=== PATIENT | male | born 1940 | race Caucasian/White ===

== ENCOUNTER 2016-09-30 06:03 | Inpatient (IN) | payer OTHER ==
[~2016-09-30] VITALS: Ht 172.7 cm; Wt 60.0 kg
[~2016-09-30 06:03] MED LIST: ACTOS15 MG PO; AMLODIPINE BESY10 MG PO; APRESOLINE25 MG PO; APRESOLINE50 MG PO; ASPIR-TRIN325 M1 PO; ATIVAN1 MG PO; ATORVASTATIN CA40 MG PO; Apresoline PO; Ativan PO; CARVEDILOL25 MG PO; CATAPRES-TTS 31 EACH TD; CHOLESTYRAMINE P4 GM PO; COREG25 M1 PO; CRESTOR10 MG PO; Catapres-TTS 3 TD; Coreg PO; Flora-Q,Risaquad PO; GEODON20 MG PO; GLUCOPHAGE1000 MG PO; GLUCOTROL5 MG PO; Glucophage PO; HALOPERIDOL5 MG/1 M1 IM; HYDROCHLOROTHIA25 MG PO; HYGROTON25 MG PO; K-DUR20 MEQ PO; K-Dur PO; LABETALOL HCL200 MG; LISINOPRIL40 MG PO; MECLIZINE HCL25 MG; METFORMIN HCL500 MG; METRONIDAZOLE500 MG PO; NORVASC10 MG PO; NOVOLOG PE100 UNITS/ SC; Norvasc PO; ONDANSETRON ODT4 MG; ONGLYZA5 MG PO; PANTOPRAZOLE SO40 MG PO; Protonix PO; SERTRALINE HCL100 MG PO; TRAZODONE HCL50 MG PO; TYLENOL REGULA325 MG PO; ZIPRASIDONE HCL20 MG PO; ZOFRAN4 MG PO; ZOLOFT100 MG PO; ZUPLENZ4 MG PO; Zestril,Prinivil PO
[2016-09-30 06:42] LABS: EOSINOPHIL (%) 0.7 % (0-5); EOSINOPHIL COUNT 0.1 K/uL (0-0.3); HEMATOCRIT 34.2 % (38.0-50.0); IMMATURE GRANULOCYTE (%) 0.4 % (0.0-0.7); IMMATURE GRANULOCYTE COUNT 0.4 K/uL; LYMPHOCYTE COUNT 2.5 K/uL (1.0-2.8); MCH 29.1 PG (29.0-34.0); MCHC 33.9 G/DL (30.0-36.0); MCV 85.9 FL (86-99); MEAN PLAT.VOLUME 10.7 uM^3 (9.0-12.4); MONOCYTE (%) 6.2 % (3-12); MONOCYTE COUNT 0.7 K/uL (0-0.8); NEUTROPHIL (%) 69.6 % (45-76); NEUTROPHIL COUNT 7.5 K/uL (1.8-6.4); PLATELET COUNT 423 K/uL (156-360); RBC DIS.WIDTH-CV 13.4 % (11.8-14.6); RBC DIS.WIDTH-SD 41.4 % (39-53); RED BLOOD COUNT 3.98 M/uL (4.00-5.50); WHITE BLOOD COUNT 10.7 K/uL (4.1-10.2)
[2016-09-30 06:50] LABS: AMYLASE 33 IU/L (1-118); CHLORIDE 100 mEq/L (99-109); POTASSIUM 3.7 mEq/L (3.7-5.4); SODIUM 141 mEq/L (136-147)
[2016-09-30 06:52] LABS: GLUCOSE 202 mg/dL (70-99)
[2016-09-30 06:52] LABS: INTER. NORMALIZED RATIO 1.3; PROTHROMBIN TIME 13.4 (9.2-11.2); PTT 27.1 (25-32)
[2016-09-30 06:53] LABS: ANION GAP 15 MEQ/L (2-14)
[2016-09-30 06:55] LABS: GFR ESTIMATE (CALCULATED) 35 mL/min/; SERUM ETHYL ALCOHOL < 10 mg/dL
[2016-09-30 06:56] LABS: UREA NITROGEN (BUN) 27 mg/dL (9-23)
[2016-09-30 06:58] LABS: LIPASE 34 U/L (1.0-51.0)
[2016-09-30 07:02] LABS: TROP-I INTERPRETATION NEGATIVE; TROPONIN-I 0.04 ng/mL (0.0-0.30)
[2016-09-30 07:02] LABS: CREATININE 1.8 mg/dL (0.6-1.3); POTASSIUM 3.3 mEq/L (3.7-5.4)
[2016-09-30] MEDS ORDERED: TRAZODONE HCL50 MG PO (11:44)
[2016-09-30] MEDS ORDERED: FENOFIBRATE145 M1 PO (11:45)
[2016-09-30] MEDS ORDERED: SERTRALINE HCL100 MG PO (11:45)
[2016-09-30] MEDS ORDERED: GLIPIZIDE5 MG PO (11:46)
[2016-09-30] MEDS ORDERED: SERTRALINE HCL50 MG PO (11:46)
[2016-09-30] MEDS ORDERED: HYDRALAZINE HCL50 MG PO (11:47)
[2016-09-30] MEDS ORDERED: POTASSIUM CHLO20 ME2 PO (11:47)
[2016-09-30] MEDS ORDERED: HYDROCHLOROTHIA25 MG PO (11:47)
[2016-09-30] MEDS ORDERED: ACETAMINOPHEN325 M1 PO (11:49)
[2016-09-30] MEDS ORDERED: CATAPRES-TTS 31 EACH TD (11:50)
[2016-09-30] MEDS ORDERED: LIPITOR40 MG PO (11:50)
[2016-09-30] MEDS ORDERED: CARVEDILOL25 MG PO (11:50)
[2016-09-30] MEDS ORDERED: GEODON20 MG PO (11:51)
[2016-09-30] MEDS ORDERED: ASPIRIN325 MG PO (11:51)
[2016-09-30] MEDS ORDERED: ACTOS15 MG PO (11:51)
[2016-09-30] MEDS ORDERED: LISINOPRIL40 MG PO (11:51)
[2016-09-30] MEDS ORDERED: AMLODIPINE BESY10 MG PO (11:52)
[2016-09-30] MEDS ORDERED: CHOLESTYRAMINE P4 GM PO (11:52)
[2016-09-30] MEDS ORDERED: PROTONIX40 MG PO (11:52)
[2016-09-30] MEDS ORDERED: METFORMIN HCL1000 MG PO (11:52)
[2016-09-30 13:10] VITALS: BP 245/125
[2016-09-30 14:10] VITALS: BP 138/63
[2016-09-30 14:53] LABS: ANION GAP 15 MEQ/L (2-14); CHLORIDE 102 MEQ/L (99-109); GFR ESTIMATE (CALCULATED) 48 mL/min/; POTASSIUM 4.1 MEQ/L (3.7-5.4); SAMPLE HEMOLYSIS CHECK 0; SAMPLE ICTERIC CHECK 0; SAMPLE LIPEMIA CHECK 0; SODIUM 142 MEQ/L (136-147); UREA NITROGEN (BUN) 23 mg/dL (9-23)
[2016-09-30 15:22] LABS: GLUCOSE 96 mg/dL (70-99)
[2016-09-30 17:19] LABS: POINT-OF-CARE METER ID UU14174216
[2016-09-30 17:39] VITALS: BP 152/68
[2016-09-30 19:20] VITALS: BP 185/92
[2016-09-30 23:55] VITALS: BP 145/99
[2016-10-01 01:21] LABS: POINT-OF-CARE METER ID UU13113781
[2016-10-01 02:52] VITALS: BP 234/103
[2016-10-01 03:26] LABS: ADD MIUA? YES; BILIRUBIN MODERATE; BLOOD TRACE; COLOR YELLOW ((YELLOW)); GLUCOSE (STRIP) NEGATIVE; KETONES >=80; LEUKOCYTES NEGATIVE; NITRITE NEGATIVE; PH, URINE 5.5 (5-8); PROTEIN (STRIP) 100; SPECIFIC GRAVITY 1.021 (1.000-1.030); UROBILINOGEN 0.2 MG/DL (0.2-1.0)
[2016-10-01 03:41] LABS: BACTERIA 1+ /HPF; CASTS NONE SEEN /LPF; CRYSTALS NONE SEEN; EPITHELIAL CELLS RARE /HPF; MUCUS NONE SEEN /LPF; RED BLOOD CELLS NONE SEEN /HPF (0-5); WHITE BLOOD CELLS NONE SEEN /HPF (0-5)
[2016-10-01 03:43] LABS: ICTOTEST NEGATIVE
[2016-10-01 07:01] LABS: POINT-OF-CARE METER ID UU14174216
[2016-10-01 07:08] LABS: EOSINOPHIL (%) 0.2 % (0-5); HEMATOCRIT 33.3 % (38.0-50.0); IMMATURE GRANULOCYTE (%) 0.3 % (0.0-0.7); LYMPHOCYTE COUNT 2.8 K/uL (1.0-2.8); MCH 28.8 PG (29.0-34.0); MCHC 33.3 G/DL (30.0-36.0); MCV 86.3 FL (86-99); MEAN PLAT.VOLUME 10.6 uM^3 (9.0-12.4); MONOCYTE (%) 6.3 % (3-12); NEUTROPHIL (%) 75.3 % (45-76); NEUTROPHIL COUNT 11.9 K/uL (1.8-6.4); PLATELET COUNT 420 K/uL (156-360); RBC DIS.WIDTH-CV 13.8 % (11.8-14.6); RBC DIS.WIDTH-SD 43.2 % (39-53); RED BLOOD COUNT 3.86 M/uL (4.00-5.50)
[2016-10-01 07:14] LABS: WHITE BLOOD COUNT 15.7 K/uL (4.1-10.2)
[2016-10-01 08:00] VITALS: BP 190/84
[2016-10-01 09:30] LABS: ALKALINE PHOSPHATASE 32 IU/L (3-129); ANION GAP 28 MEQ/L (2-14); CHLORIDE 98 MEQ/L (99-109); DIRECT BILIRUBIN 0.1 mg/dL (0.0-0.3); GFR ESTIMATE (CALCULATED) > 59 mL/min/; GLUCOSE 99 mg/dL (70-99); POTASSIUM 3.5 MEQ/L (3.7-5.4); SAMPLE HEMOLYSIS CHECK 0; SAMPLE ICTERIC CHECK 0; SAMPLE LIPEMIA CHECK 0; SODIUM 138 MEQ/L (136-147); TOTAL BILIRUBIN 0.6 MG/DL (0.0-1.0); UREA NITROGEN (BUN) 20 mg/dL (9-23)
[2016-10-01 09:35] LABS: MAGNESIUM 0.8 mg/dl (1.3-2.7)
[2016-10-01 10:46] LABS: BASE EXCESS -13.9 mEq/L (-3 to +3); CARBOXY HGB 1.4 % (0-5); COMMENTS - BLOOD GASES C+A-N/A; DEVICE ROOM AIR; FI02 21 %; METHEMOGLOBIN 1.5 % (0-1.5); PCO2 19 mm Hg (35-45); PO2 109 mm Hg (80-100); SITE LR; TOTAL RESP RATE 28 resp/min; pH 7.33 (7.35-7.45)
[2016-10-01 11:47] VITALS: BP 136/103
[2016-10-01 14:00] VITALS: BP 173/88
[2016-10-01 14:06] LABS: BASE EXCESS -15.4 mEq/L (-3 to +3); BICARBONATE 9.4 mEq/L (22-26); CARBOXY HGB 1.7 % (0-5); METHEMOGLOBIN 1.9 % (0-1.5); PCO2 20 mm Hg (35-45); PO2 105 mm Hg (80-100)
[2016-10-01 14:07] LABS: POINT-OF-CARE METER ID UU14174216
[2016-10-01 14:09] LABS: COMMENTS - BLOOD GASES A+C+; SITE LR; TOTAL RESP RATE 26 resp/min; pH 7.28 (7.35-7.45)
[2016-10-01 14:46] LABS: ALKALINE PHOSPHATASE 29 IU/L (3-129); ANION GAP 29 MEQ/L (2-14); CHLORIDE 97 MEQ/L (99-109); GFR ESTIMATE (CALCULATED) > 59 mL/min/; POTASSIUM 3.3 MEQ/L (3.7-5.4); SAMPLE HEMOLYSIS CHECK 0; SAMPLE ICTERIC CHECK 0; SAMPLE LIPEMIA CHECK 0; SODIUM 137 MEQ/L (136-147); TOTAL BILIRUBIN 0.5 MG/DL (0.0-1.0); UREA NITROGEN (BUN) 21 mg/dL (9-23)
[2016-10-01 14:59] LABS: GLUCOSE 168 mg/dL (70-99)
[2016-10-01 15:48] LABS: D-DIMER ELISA 1.03 mg/L FEU (< 0.57)
[2016-10-01 16:00] VITALS: BP 145/77
[2016-10-01 16:10] LABS: TROP-I INTERPRETATION NEGATIVE; TROPONIN-I 0.11 ng/mL (0.0-0.30)
[2016-10-01 18:18] LABS: ANION GAP 28 MEQ/L (2-14); CHLORIDE 95 MEQ/L (99-109); GFR ESTIMATE (CALCULATED) 57 mL/min/; GLUCOSE 158 mg/dL (70-99); POTASSIUM 3.1 MEQ/L (3.7-5.4); SAMPLE HEMOLYSIS CHECK 0; SAMPLE ICTERIC CHECK 0; SAMPLE LIPEMIA CHECK 0; SODIUM 139 MEQ/L (136-147); UREA NITROGEN (BUN) 20 mg/dL (9-23)
[2016-10-01 20:20] VITALS: BP 158/83
[2016-10-01 20:50] LABS: BASE EXCESS -2.6 mEq/L (-3 to +3); CARBOXY HGB 1.7 % (0-5); METHEMOGLOBIN 1.6 % (0-1.5)
[2016-10-01 20:51] LABS: BICARBONATE 19.8 mEq/L (22-26); COMMENTS - BLOOD GASES A+C+; DEVICE ROOM AIR; FI02 0.21 %; PCO2 26 mm Hg (35-45); PO2 79 mm Hg (80-100); SITE LR; pH 7.49 (7.35-7.45)
[2016-10-01 20:52] LABS: TOTAL RESP RATE 21 resp/min
[2016-10-01 22:20] LABS: ALKALINE PHOSPHATASE 28 IU/L (3-129); ANION GAP 24 MEQ/L (2-14); CHLORIDE 96 MEQ/L (99-109); GFR ESTIMATE (CALCULATED) > 59 mL/min/; GLUCOSE 141 mg/dL (70-99); POTASSIUM 3.3 MEQ/L (3.7-5.4); SAMPLE HEMOLYSIS CHECK 0; SAMPLE ICTERIC CHECK 0; SAMPLE LIPEMIA CHECK 0; SODIUM 139 MEQ/L (136-147); TOTAL BILIRUBIN 0.5 MG/DL (0.0-1.0); UREA NITROGEN (BUN) 19 mg/dL (9-23)
[2016-10-02] VITALS (7 sets, daily range): BP systolic 141–161; BP diastolic 55–92
[2016-10-02 05:59] LABS: POINT-OF-CARE METER ID UU13113698
[2016-10-02 06:47] LABS: EOSINOPHIL (%) 0.7 % (0-5); EOSINOPHIL COUNT 0.1 K/uL (0-0.3); HEMATOCRIT 27.8 % (38.0-50.0); IMMATURE GRANULOCYTE (%) 0.3 % (0.0-0.7); LYMPHOCYTE COUNT 1.6 K/uL (1.0-2.8); MCH 28.4 PG (29.0-34.0); MCHC 34.2 G/DL (30.0-36.0); MCV 83.2 FL (86-99); MONOCYTE (%) 6.2 % (3-12); MONOCYTE COUNT 0.7 K/uL (0-0.8); NEUTROPHIL (%) 77.2 % (45-76); NEUTROPHIL COUNT 8.2 K/uL (1.8-6.4); PLATELET COUNT 354 K/uL (156-360); RBC DIS.WIDTH-CV 13.7 % (11.8-14.6); RBC DIS.WIDTH-SD 41.8 % (39-53); RED BLOOD COUNT 3.34 M/uL (4.00-5.50); WHITE BLOOD COUNT 10.6 K/uL (4.1-10.2)
[2016-10-02 07:10] LABS: CREATINE KINASE 1159 IU/L (1-294)
[2016-10-02 08:17] LABS: ALKALINE PHOSPHATASE 28 IU/L (3-129); ANION GAP 17 MEQ/L (2-14); CHLORIDE 95 MEQ/L (99-109); GFR ESTIMATE (CALCULATED) > 59 mL/min/; GLUCOSE 140 mg/dL (70-99); POTASSIUM 3.1 MEQ/L (3.7-5.4); SODIUM 137 MEQ/L (136-147); TOTAL BILIRUBIN 0.5 MG/DL (0.0-1.0); UREA NITROGEN (BUN) 16 mg/dL (9-23)
[2016-10-02 08:20] LABS: BASE EXCESS 4.9 mEq/L (-3 to +3); BICARBONATE 27.4 mEq/L (22-26); CARBOXY HGB 1.6 % (0-5); METHEMOGLOBIN 1.8 % (0-1.5); PCO2 32 mm Hg (35-45); PO2 74 mm Hg (80-100); pH 7.54 (7.35-7.45)
[2016-10-02 08:21] LABS: COMMENTS - BLOOD GASES C+A-N/A; DEVICE ROOM AIR; FI02 21 %; SITE LR; TOTAL RESP RATE 24 resp/min
[2016-10-02 12:24] LABS: POINT-OF-CARE USER ID NUTSLF44
[2016-10-03] VITALS (7 sets, daily range): BP systolic 137–200; BP diastolic 69–101
[2016-10-03 06:37] LABS: POINT-OF-CARE METER ID UU14174216
[2016-10-03 07:16] LABS: EOSINOPHIL (%) 1.1 % (0-5); EOSINOPHIL COUNT 0.1 K/uL (0-0.3); HEMATOCRIT 30.3 % (38.0-50.0); IMMATURE GRANULOCYTE (%) 0.6 % (0.0-0.7); IMMATURE GRANULOCYTE COUNT 0.1 K/uL; LYMPHOCYTE COUNT 2.3 K/uL (1.0-2.8); MCH 29.1 PG (29.0-34.0); MCHC 34.3 G/DL (30.0-36.0); MCV 84.6 FL (86-99); MEAN PLAT.VOLUME 10.6 uM^3 (9.0-12.4); MONOCYTE (%) 5.8 % (3-12); MONOCYTE COUNT 0.6 K/uL (0-0.8); NEUTROPHIL (%) 68.6 % (45-76); NEUTROPHIL COUNT 6.8 K/uL (1.8-6.4); PLATELET COUNT 396 K/uL (156-360); RBC DIS.WIDTH-CV 13.9 % (11.8-14.6); RBC DIS.WIDTH-SD 42.9 % (39-53); RED BLOOD COUNT 3.58 M/uL (4.00-5.50); WHITE BLOOD COUNT 9.9 K/uL (4.1-10.2)
[2016-10-03 08:01] LABS: ANION GAP 17 MEQ/L (2-14); CHLORIDE 96 MEQ/L (99-109); GFR ESTIMATE (CALCULATED) > 59 mL/min/; GLUCOSE 128 mg/dL (70-99); MAGNESIUM 1.3 mg/dl (1.3-2.7); POTASSIUM 3.4 MEQ/L (3.7-5.4); SAMPLE HEMOLYSIS CHECK 0; SAMPLE ICTERIC CHECK 0; SAMPLE LIPEMIA CHECK 0; SODIUM 136 MEQ/L (136-147); UREA NITROGEN (BUN) 10 mg/dL (9-23)
[2016-10-03 21:28] LABS: POINT-OF-CARE METER ID UU13113698
[2016-10-04 03:00] VITALS: BP 149/89
[2016-10-04 06:24] LABS: EOSINOPHIL (%) 2.7 % (0-5); EOSINOPHIL COUNT 0.1 K/uL (0-0.3); HEMATOCRIT 28.3 % (38.0-50.0); IMMATURE GRANULOCYTE (%) 0.4 % (0.0-0.7); LYMPHOCYTE COUNT 1.3 K/uL (1.0-2.8); MCH 29.1 PG (29.0-34.0); MCHC 34.6 G/DL (30.0-36.0); MEAN PLAT.VOLUME 10.2 uM^3 (9.0-12.4); MONOCYTE (%) 8.7 % (3-12); MONOCYTE COUNT 0.5 K/uL (0-0.8); NEUTROPHIL (%) 63.1 % (45-76); NEUTROPHIL COUNT 3.3 K/uL (1.8-6.4); PLATELET COUNT 333 K/uL (156-360); RBC DIS.WIDTH-CV 13.8 % (11.8-14.6); RBC DIS.WIDTH-SD 42.3 % (39-53); RED BLOOD COUNT 3.37 M/uL (4.00-5.50)
[2016-10-04 06:34] LABS: WHITE BLOOD COUNT 5.3 K/uL (4.1-10.2)
[2016-10-04 06:40] LABS: ANION GAP 12 MEQ/L (2-14); CHLORIDE 101 MEQ/L (99-109); POTASSIUM 3.3 MEQ/L (3.7-5.4); SAMPLE HEMOLYSIS CHECK 0; SAMPLE ICTERIC CHECK 0; SAMPLE LIPEMIA CHECK 0; SODIUM 137 MEQ/L (136-147); TOTAL BILIRUBIN 0.5 MG/DL (0.0-1.0)
[2016-10-04 06:46] LABS: ALKALINE PHOSPHATASE 34 IU/L (3-129); GFR ESTIMATE (CALCULATED) > 59 mL/min/; GLUCOSE 167 mg/dL (70-99); HDL CHOLESTEROL 29 MG/DL (Desirable>=40); LDL CHOLESTEROL 77 mg/dL (Desirable<100); NON-HDL CHOLESTEROL 136 mg/dL (Desirable<160); TOTAL CHOLESTEROL 165 mg/dL (Desirable<200); TRIGLYCERIDES 295 MG/DL (Normal: <150); UREA NITROGEN (BUN) 7 mg/dL (9-23)
[2016-10-04 07:23] LABS: Estimated Average Glucose 146 mg/dL (70-123); HEMOGLOBIN A1c (GLYCOHEMOGLOB) 6.7 % HGB (Below 5.7)
[2016-10-04 07:40] VITALS: BP 149/81
[2016-10-04 07:52] LABS: POINT-OF-CARE METER ID UU14174216; POINT-OF-CARE USER ID NUTSLF44
[2016-10-04 10:22] VITALS: BP 119/60
[2016-10-04 11:51] LABS: POINT-OF-CARE METER ID UU13113725
[2016-10-04 16:00] VITALS: BP 148/84
[2016-10-04 20:57] LABS: POINT-OF-CARE METER ID UU13113725
[2016-10-05 00:27] VITALS: BP 140/67
[2016-10-05 06:13] LABS: EOSINOPHIL (%) 2.6 % (0-5); EOSINOPHIL COUNT 0.1 K/uL (0-0.3); HEMATOCRIT 27.3 % (38.0-50.0); IMMATURE GRANULOCYTE (%) 0.4 % (0.0-0.7); LYMPHOCYTE COUNT 1.5 K/uL (1.0-2.8); MCH 29.8 PG (29.0-34.0); MCHC 35.2 G/DL (30.0-36.0); MCV 84.8 FL (86-99); MEAN PLAT.VOLUME 10.1 uM^3 (9.0-12.4); MONOCYTE (%) 9.5 % (3-12); MONOCYTE COUNT 0.4 K/uL (0-0.8); NEUTROPHIL COUNT 2.5 K/uL (1.8-6.4); PLATELET COUNT 300 K/uL (156-360); RBC DIS.WIDTH-CV 13.7 % (11.8-14.6); RBC DIS.WIDTH-SD 42.5 % (39-53); RED BLOOD COUNT 3.22 M/uL (4.00-5.50); WHITE BLOOD COUNT 4.6 K/uL (4.1-10.2)
[2016-10-05 07:24] LABS: ALKALINE PHOSPHATASE 31 IU/L (3-129); ANION GAP 10 MEQ/L (2-14); CHLORIDE 104 MEQ/L (99-109); GFR ESTIMATE (CALCULATED) > 59 mL/min/; GLUCOSE 141 mg/dL (70-99); MAGNESIUM 1.3 mg/dl (1.3-2.7); POTASSIUM 3.3 MEQ/L (3.7-5.4); SAMPLE HEMOLYSIS CHECK 0; SAMPLE ICTERIC CHECK 0; SAMPLE LIPEMIA CHECK 0; SODIUM 139 MEQ/L (136-147); TOTAL BILIRUBIN 0.4 MG/DL (0.0-1.0); UREA NITROGEN (BUN) 9 mg/dL (9-23)
[2016-10-05 07:50] VITALS: BP 174/96
[2016-10-05] MEDS ORDERED: NIFEDIPINE ER30 MG PO (11:19)
[2016-10-05] MEDS ORDERED: KEPPRA250 MG PO (11:19)
[2016-10-05 11:35] LABS: POINT-OF-CARE METER ID UU13113725
[2016-10-05 11:55] VITALS: BP 180/87
[2016-10-05] MEDS ORDERED: PEPCID20 MG PO (14:39)
== END 2016-10-05 16:05 | DRG 100 ==
LOC: EME → EDBD 06:03 → 4EAST 11:46 → EDOF 11:46 → 4EAST 13:02 → 5EAST 10-04 10:10
PROVIDERS: Emergency Medicine; Family Medicine; Hospitalist; Internal Medicine Nephrology; Nurse Practitioner Adult Health; Pediatrics; Physician Assistant
DX: R56.9 Unspecified convulsions (principal); G93.41 Metabolic encephalopathy; N17.9 Acute kidney failure, unspecified; E86.0 Dehydration; I12.9 Hypertensive chronic kidney disease with stage 1 through stage 4 chronic kidney disease, or unspecified chronic kidney disease; N18.2 Chronic kidney disease, stage 2 (mild); M62.82 Rhabdomyolysis; E11.22 Type 2 diabetes mellitus with diabetic chronic kidney disease; E87.2 Acidosis; E87.3 Alkalosis; D64.9 Anemia, unspecified; E83.42 Hypomagnesemia; E83.39 Other disorders of phosphorus metabolism; E87.6 Hypokalemia; E78.5 Hyperlipidemia, unspecified; Z66 Do not resuscitate; Z51.5 Encounter for palliative care; F41.9 Anxiety disorder, unspecified; F03.90 Unspecified dementia, unspecified severity, without behavioral disturbance, psychotic disturbance, mood disturbance, and anxiety; Z86.73 Personal history of transient ischemic attack (TIA), and cerebral infarction without residual deficits; Z86.12 Personal history of poliomyelitis; Z87.891 Personal history of nicotine dependence; Z79.84 Long term (current) use of oral hypoglycemic drugs
CPT/HCPCS: 36600; 70450; 70551; 71010; 71275; 76770; 80047; 80048; 80048 91; 80053; 80061; 80069; 80076; 81003; 82140; 82150; 82550; 82803; 82948; 83036; 83605; 83690; 83735; 84100; 84300; 84443; 84484; 85025; 85379; 85610; 85730; 86850; 86900; 86901; 87040; 87086; 92610 GN; 93005; 93880; 94799; 95819; 99281; 99285; G0480; J0295; J0360; J1644; J1815; J1953; J2060; J2250; J3475; J3480; J7050; J7070

== ENCOUNTER 2016-10-09 11:50 | Inpatient (IN) | payer OTHER ==
[~2016-10-09] VITALS: Ht 160 cm; Wt 65.4 kg
[~2016-10-09 11:50] MED LIST changes: +ACETAMINOPHEN325 M1 PO; +ASPIRIN325 MG PO; +FENOFIBRATE145 M1 PO; +GLIPIZIDE5 MG PO; +HYDRALAZINE HCL50 MG PO; +KEPPRA250 MG PO; +LIPITOR40 MG PO; +METFORMIN HCL1000 MG PO; +NIFEDIPINE ER30 MG PO; +PEPCID20 MG PO; +POTASSIUM CHLO20 ME2 PO; +PROTONIX40 MG PO; +SERTRALINE HCL50 MG PO
[2016-10-09 13:10] LABS: EOSINOPHIL (%) 0.1 % (0-5); HEMATOCRIT 26.2 % (38.0-50.0); IMMATURE GRANULOCYTE (%) 1.9 % (0.0-0.7); IMMATURE GRANULOCYTE COUNT 2.5 K/uL; LYMPHOCYTE COUNT 0.8 K/uL (1.0-2.8); MCH 29.4 PG (29.0-34.0); MCHC 34.4 G/DL (30.0-36.0); MCV 85.6 FL (86-99); MONOCYTE (%) 5.9 % (3-12); MONOCYTE COUNT 0.8 K/uL (0-0.8); NEUTROPHIL (%) 86.5 % (45-76); NEUTROPHIL COUNT 11.6 K/uL (1.8-6.4); PLATELET COUNT 337 K/uL (156-360); RBC DIS.WIDTH-CV 14.5 % (11.8-14.6); RBC DIS.WIDTH-SD 42.2 % (39-53); RED BLOOD COUNT 3.06 M/uL (4.00-5.50); WHITE BLOOD COUNT 13.4 K/uL (4.1-10.2)
[2016-10-09 13:26] LABS: CHLORIDE 97 mEq/L (99-109); POTASSIUM 3.8 mEq/L (3.7-5.4)
[2016-10-09 13:29] LABS: GLUCOSE 188 mg/dL (70-99)
[2016-10-09 13:30] LABS: ANION GAP 13 MEQ/L (2-14)
[2016-10-09 13:31] LABS: TOTAL BILIRUBIN 0.5 mg/dL (0.0-1.0)
[2016-10-09 13:32] LABS: ALKALINE PHOSPHATASE 44 IU/L (3-129); GFR ESTIMATE (CALCULATED) 19 mL/min/; SODIUM 132 mEq/L (136-147)
[2016-10-09 13:33] LABS: TROP-I INTERPRETATION NEGATIVE; TROPONIN-I 0.03 ng/mL (0.0-0.30)
[2016-10-09 13:36] LABS: LIPASE 41 U/L (1.0-51.0)
[2016-10-09 13:38] LABS: UREA NITROGEN (BUN) 56 mg/dL (9-23)
[2016-10-09 14:10] LABS: ADD MIUA? YES; BILIRUBIN NEGATIVE; BLOOD NEGATIVE; COLOR AMBER ((YELLOW)); GLUCOSE (STRIP) NEGATIVE; KETONES NEGATIVE; LEUKOCYTES NEGATIVE; NITRITE NEGATIVE; PROTEIN (STRIP) 100; SPECIFIC GRAVITY 1.018 (1.000-1.030); UROBILINOGEN 0.2 MG/DL (0.2-1.0)
[2016-10-09 14:47] LABS: BACTERIA RARE /HPF; EPITHELIAL CELLS RARE /HPF; HYALINE CASTS TNTC /LPF; MUCUS TRACE /LPF; RED BLOOD CELLS 0-5 /HPF (0-5); UCUL ADDED? NO; WHITE BLOOD CELLS 0-5 /HPF (0-5)
[2016-10-09] MEDS ORDERED: SALINE FLUSH 1010 ML IV (15:05)
[2016-10-09] MEDS ORDERED: FLAGYL500 MG PO (15:06)
[2016-10-09] MEDS ORDERED: METOCLOPRAMIDE H5 MG PO (15:06)
[2016-10-09] MEDS ORDERED: KEPPRA250 MG PO (15:07)
[2016-10-09] MEDS ORDERED: PROMETHAZINE12.5 M1 PO (15:11)
[2016-10-10 00:41] VITALS: BP 150/78
[2016-10-10 06:59] LABS: EOSINOPHIL (%) 0.2 % (0-5); HEMATOCRIT 23.9 % (38.0-50.0); IMMATURE GRANULOCYTE (%) 0.4 % (0.0-0.7); LYMPHOCYTE COUNT 0.8 K/uL (1.0-2.8); MCH 29.4 PG (29.0-34.0); MCHC 34.3 G/DL (30.0-36.0); MCV 85.7 FL (86-99); MEAN PLAT.VOLUME 10.2 uM^3 (9.0-12.4); MONOCYTE (%) 6.7 % (3-12); MONOCYTE COUNT 0.7 K/uL (0-0.8); NEUTROPHIL COUNT 8.6 K/uL (1.8-6.4); PLATELET COUNT 290 K/uL (156-360); RBC DIS.WIDTH-CV 14.7 % (11.8-14.6); RBC DIS.WIDTH-SD 45.8 % (39-53); RED BLOOD COUNT 2.79 M/uL (4.00-5.50); WHITE BLOOD COUNT 10.1 K/uL (4.1-10.2)
[2016-10-10 07:40] VITALS: BP 150/78
[2016-10-10 07:41] LABS: ANION GAP 10 MEQ/L (2-14); CHLORIDE 104 MEQ/L (99-109); GLUCOSE 131 mg/dL (70-99); POTASSIUM 3.3 MEQ/L (3.7-5.4); SAMPLE HEMOLYSIS CHECK 0; SAMPLE ICTERIC CHECK 0; SAMPLE LIPEMIA CHECK 0; SODIUM 134 MEQ/L (136-147); UREA NITROGEN (BUN) 48 mg/dL (9-23)
[2016-10-10 07:42] LABS: GFR ESTIMATE (CALCULATED) 42 mL/min/
[2016-10-10 18:52] LABS: HEMATOCRIT 23.8 % (38.0-50.0); MCH 28.4 PG (29.0-34.0); MCHC 33.2 G/DL (30.0-36.0); MCV 85.6 FL (86-99); MEAN PLAT.VOLUME 9.5 uM^3 (9.0-12.4); PLATELET COUNT 270 K/uL (156-360); RBC DIS.WIDTH-CV 14.7 % (11.8-14.6); RBC DIS.WIDTH-SD 45.9 % (39-53); RED BLOOD COUNT 2.78 M/uL (4.00-5.50); WHITE BLOOD COUNT 9.3 K/uL (4.1-10.2)
[2016-10-11 00:11] VITALS: BP 143/75
[2016-10-11 08:00] VITALS: BP 173/75
[2016-10-11 09:38] LABS: HEMATOCRIT 23.7 % (38.0-50.0); MCH 29.3 PG (29.0-34.0); MCHC 33.3 G/DL (30.0-36.0); MCV 87.8 FL (86-99); MEAN PLAT.VOLUME 10.3 uM^3 (9.0-12.4); PLATELET COUNT 278 K/uL (156-360); RBC DIS.WIDTH-CV 14.9 % (11.8-14.6); RBC DIS.WIDTH-SD 47.4 % (39-53); WHITE BLOOD COUNT 9.3 K/uL (4.1-10.2)
[2016-10-11 10:06] LABS: ALKALINE PHOSPHATASE 36 IU/L (3-129); ANION GAP 9 MEQ/L (2-14); CHLORIDE 109 MEQ/L (99-109); POTASSIUM 3.7 MEQ/L (3.7-5.4); SAMPLE HEMOLYSIS CHECK 0; SAMPLE ICTERIC CHECK 0; SAMPLE LIPEMIA CHECK 0; SODIUM 137 MEQ/L (136-147); UREA NITROGEN (BUN) 42 mg/dL (9-23)
[2016-10-11 10:13] LABS: GFR ESTIMATE (CALCULATED) > 59 mL/min/; GLUCOSE 92 mg/dL (70-99); TOTAL BILIRUBIN 0.3 MG/DL (0.0-1.0)
[2016-10-11 19:41] LABS: HEMATOCRIT 23.2 % (38.0-50.0); MCH 28.6 PG (29.0-34.0); MCHC 33.2 G/DL (30.0-36.0); MCV 86.2 FL (86-99); MEAN PLAT.VOLUME 9.9 uM^3 (9.0-12.4); PLATELET COUNT 307 K/uL (156-360); RBC DIS.WIDTH-CV 14.7 % (11.8-14.6); RBC DIS.WIDTH-SD 45.8 % (39-53); RED BLOOD COUNT 2.69 M/uL (4.00-5.50); WHITE BLOOD COUNT 8.8 K/uL (4.1-10.2)
[2016-10-11 20:07] LABS: IRON 10 MCG/DL (35-150)
[2016-10-11 20:23] LABS: FERRITIN 270 NG/ML (22-322)
[2016-10-11 23:59] VITALS: BP 168/81
[2016-10-12 04:26] LABS: INTERNAL CONTROL VALID? YES
[2016-10-12 04:36] LABS: C DIFF TOXIN NEGATIVE (NEGATIVE)
[2016-10-12 04:41] LABS: PROBE CHECK PASS; SPECIMEN PROCESSING CONTROL PASS
[2016-10-12 07:10] LABS: EOSINOPHIL (%) 0.8 % (0-5); EOSINOPHIL COUNT 0.1 K/uL (0-0.3); HEMATOCRIT 24.1 % (38.0-50.0); IMMATURE GRANULOCYTE (%) 0.6 % (0.0-0.7); IMMATURE GRANULOCYTE COUNT 0.1 K/uL; MCH 28.9 PG (29.0-34.0); MCHC 33.6 G/DL (30.0-36.0); MCV 86.1 FL (86-99); MEAN PLAT.VOLUME 9.7 uM^3 (9.0-12.4); MONOCYTE (%) 5.5 % (3-12); MONOCYTE COUNT 0.5 K/uL (0-0.8); NEUTROPHIL (%) 82.3 % (45-76); NEUTROPHIL COUNT 7.4 K/uL (1.8-6.4); PLATELET COUNT 296 K/uL (156-360); RBC DIS.WIDTH-CV 14.4 % (11.8-14.6); RBC DIS.WIDTH-SD 44.9 % (39-53); WHITE BLOOD COUNT 8.9 K/uL (4.1-10.2)
[2016-10-12 07:31] LABS: ANION GAP 11 MEQ/L (2-14); CHLORIDE 110 MEQ/L (99-109); GFR ESTIMATE (CALCULATED) > 59 mL/min/; GLUCOSE 127 mg/dL (70-99); POTASSIUM 3.5 MEQ/L (3.7-5.4); SAMPLE HEMOLYSIS CHECK 0; SAMPLE ICTERIC CHECK 0; SAMPLE LIPEMIA CHECK 0; SODIUM 139 MEQ/L (136-147); UREA NITROGEN (BUN) 27 mg/dL (9-23)
[2016-10-12 07:41] VITALS: BP 170/77
[2016-10-12 15:15] VITALS: BP 188/83
[2016-10-13 00:05] VITALS: BP 147/68
[2016-10-13 07:25] VITALS: BP 130/63
[2016-10-13 10:37] LABS: HEMATOCRIT 23.2 % (38.0-50.0); MCH 28.1 PG (29.0-34.0); MCHC 32.8 G/DL (30.0-36.0); MCV 85.9 FL (86-99); MEAN PLAT.VOLUME 9.9 uM^3 (9.0-12.4); PLATELET COUNT 297 K/uL (156-360); RBC DIS.WIDTH-CV 14.2 % (11.8-14.6); RBC DIS.WIDTH-SD 44.2 % (39-53); WHITE BLOOD COUNT 9.8 K/uL (4.1-10.2)
[2016-10-13 15:01] VITALS: BP 144/64
[2016-10-13 23:57] VITALS: BP 133/71
[2016-10-14 07:04] LABS: TRIGLYCERIDES 173 MG/DL (Normal: <150)
[2016-10-14 07:42] LABS: HEMATOCRIT 23.3 % (38.0-50.0); MCH 29.2 PG (29.0-34.0); MCHC 33.9 G/DL (30.0-36.0); PLATELET COUNT 337 K/uL (156-360); RBC DIS.WIDTH-CV 14.5 % (11.8-14.6); RBC DIS.WIDTH-SD 45.1 % (39-53); RED BLOOD COUNT 2.71 M/uL (4.00-5.50); WHITE BLOOD COUNT 10.6 K/uL (4.1-10.2)
[2016-10-14 08:30] VITALS: BP 139/91
[2016-10-14 15:31] VITALS: BP 142/86
[2016-10-14 23:39] VITALS: BP 179/79
[2016-10-15 07:26] VITALS: BP 177/76
[2016-10-15 08:48] LABS: HEMATOCRIT 26.4 % (38.0-50.0); MCH 28.4 PG (29.0-34.0); MCHC 32.6 G/DL (30.0-36.0); MCV 87.1 FL (86-99); MEAN PLAT.VOLUME 9.8 uM^3 (9.0-12.4); NRBC (%) 0.1 /100 WBC (0-0); PLATELET COUNT 372 K/uL (156-360); RBC DIS.WIDTH-CV 14.7 % (11.8-14.6); RBC DIS.WIDTH-SD 46.5 % (39-53); RED BLOOD COUNT 3.03 M/uL (4.00-5.50); WHITE BLOOD COUNT 11.7 K/uL (4.1-10.2)
[2016-10-15 08:54] LABS: ANION GAP 11 MEQ/L (2-14); CHLORIDE 114 MEQ/L (99-109); POTASSIUM 3.6 MEQ/L (3.7-5.4); SAMPLE HEMOLYSIS CHECK 0; SAMPLE ICTERIC CHECK 0; SAMPLE LIPEMIA CHECK 0; SODIUM 141 MEQ/L (136-147)
[2016-10-15 09:00] LABS: GFR ESTIMATE (CALCULATED) > 59 mL/min/; GLUCOSE 132 mg/dL (70-99); UREA NITROGEN (BUN) 13 mg/dL (9-23)
[2016-10-15 09:26] LABS: EOSINOPHIL (%) 0.7 % (0-5); EOSINOPHIL COUNT 0.1 K/uL (0-0.3); HEMATOLOGY COMMENT 1 SMEAR COMPATIBLE; IMMATURE GRANULOCYTE (%) 2.8 % (0.0-0.7); IMMATURE GRANULOCYTE COUNT 0.3 K/uL; LYMPHOCYTE COUNT 1.3 K/uL (1.0-2.8); MONOCYTE (%) 4.5 % (3-12); MONOCYTE COUNT 0.5 K/uL (0-0.8); NEUTROPHIL (%) 80.3 % (45-76); NEUTROPHIL COUNT 9.4 K/uL (1.8-6.4); USER ID CCL
[2016-10-15 15:21] VITALS: BP 146/66
[2016-10-16 00:01] VITALS: BP 147/76
[2016-10-16 07:05] LABS: HEMATOCRIT 25.4 % (38.0-50.0); MCH 29.4 PG (29.0-34.0); MCHC 33.9 G/DL (30.0-36.0); MCV 86.7 FL (86-99); MEAN PLAT.VOLUME 9.6 uM^3 (9.0-12.4); PLATELET COUNT 384 K/uL (156-360); RBC DIS.WIDTH-CV 14.8 % (11.8-14.6); RBC DIS.WIDTH-SD 45.9 % (39-53); RED BLOOD COUNT 2.93 M/uL (4.00-5.50)
[2016-10-16 07:37] LABS: ANION GAP 11 MEQ/L (2-14); CHLORIDE 114 MEQ/L (99-109); GFR ESTIMATE (CALCULATED) > 59 mL/min/; GLUCOSE 105 mg/dL (70-99); POTASSIUM 3.5 MEQ/L (3.7-5.4); SAMPLE HEMOLYSIS CHECK 0; SAMPLE ICTERIC CHECK 0; SAMPLE LIPEMIA CHECK 0; SODIUM 139 MEQ/L (136-147); UREA NITROGEN (BUN) 10 mg/dL (9-23)
[2016-10-16 07:43] LABS: EOSINOPHIL (%) 1.1 % (0-5); EOSINOPHIL COUNT 0.1 K/uL (0-0.3); HEMATOLOGY COMMENT 1 SMEAR COMPATIBLE; IMMATURE GRANULOCYTE (%) 2.4 % (0.0-0.7); IMMATURE GRANULOCYTE COUNT 0.3 K/uL; LYMPHOCYTE COUNT 1.6 K/uL (1.0-2.8); MONOCYTE (%) 5.2 % (3-12); MONOCYTE COUNT 0.6 K/uL (0-0.8); NEUTROPHIL (%) 76.9 % (45-76); NEUTROPHIL COUNT 8.5 K/uL (1.8-6.4); PLAT.SUFFICIENCY INCREASED; USER ID TLW
[2016-10-16 15:18] VITALS: BP 170/86
[2016-10-17] VITALS: BP 179/99
[2016-10-17 07:25] LABS: C DIFF TOXIN ND (NEGATIVE)
[2016-10-17 07:41] LABS: ANION GAP 14 MEQ/L (2-14); CHLORIDE 109 MEQ/L (99-109); GFR ESTIMATE (CALCULATED) > 59 mL/min/; GLUCOSE 137 mg/dL (70-99); POTASSIUM 3.3 MEQ/L (3.7-5.4); SAMPLE HEMOLYSIS CHECK 0; SAMPLE ICTERIC CHECK 0; SAMPLE LIPEMIA CHECK 0; SODIUM 138 MEQ/L (136-147); UREA NITROGEN (BUN) 7 mg/dL (9-23)
[2016-10-17 07:48] LABS: EOSINOPHIL (%) 0.4 % (0-5); EOSINOPHIL COUNT 0.1 K/uL (0-0.3); HEMATOCRIT 30.7 % (38.0-50.0); IMMATURE GRANULOCYTE (%) 1.4 % (0.0-0.7); IMMATURE GRANULOCYTE COUNT 0.2 K/uL; LYMPHOCYTE COUNT 0.8 K/uL (1.0-2.8); MCHC 32.9 G/DL (30.0-36.0); MEAN PLAT.VOLUME 9.4 uM^3 (9.0-12.4); MONOCYTE (%) 4.5 % (3-12); MONOCYTE COUNT 0.6 K/uL (0-0.8); NEUTROPHIL (%) 86.9 % (45-76); NEUTROPHIL COUNT 10.9 K/uL (1.8-6.4); PLATELET COUNT 468 K/uL (156-360); RBC DIS.WIDTH-CV 14.8 % (11.8-14.6); RBC DIS.WIDTH-SD 45.2 % (39-53); RED BLOOD COUNT 3.61 M/uL (4.00-5.50); WHITE BLOOD COUNT 12.6 K/uL (4.1-10.2)
[2016-10-17 08:09] VITALS: BP 182/86
[2016-10-17 15:31] VITALS: BP 176/80
[2016-10-18] VITALS: BP 165/85
[2016-10-18 07:33] VITALS: BP 148/91
[2016-10-18 09:09] LABS: EOSINOPHIL (%) 0 % (0-5); HEMATOCRIT 30.9 % (38.0-50.0); IMMATURE GRANULOCYTE (%) 1.3 % (0.0-0.7); IMMATURE GRANULOCYTE COUNT 0.1 K/uL; LYMPHOCYTE COUNT 1.4 K/uL (1.0-2.8); MCH 27.5 PG (29.0-34.0); MCHC 32.4 G/DL (30.0-36.0); MCV 85.1 FL (86-99); MEAN PLAT.VOLUME 9.5 uM^3 (9.0-12.4); NEUTROPHIL (%) 76.3 % (45-76); NEUTROPHIL COUNT 8.2 K/uL (1.8-6.4); PLATELET COUNT 387 K/uL (156-360); RBC DIS.WIDTH-CV 15.3 % (11.8-14.6); RBC DIS.WIDTH-SD 47.1 % (39-53); RED BLOOD COUNT 3.63 M/uL (4.00-5.50); WHITE BLOOD COUNT 10.8 K/uL (4.1-10.2)
[2016-10-18 09:59] LABS: ANION GAP 12 MEQ/L (2-14); CHLORIDE 113 MEQ/L (99-109); GFR ESTIMATE (CALCULATED) > 59 mL/min/; GLUCOSE 142 mg/dL (70-99); POTASSIUM 3.5 MEQ/L (3.7-5.4); SAMPLE HEMOLYSIS CHECK 0; SAMPLE ICTERIC CHECK 0; SAMPLE LIPEMIA CHECK 0; SODIUM 138 MEQ/L (136-147); UREA NITROGEN (BUN) 9 mg/dL (9-23)
[2016-10-18 16:00] VITALS: BP 192/94
[2016-10-19 00:02] VITALS: BP 111/70
[2016-10-19 09:05] VITALS: BP 162/80
[2016-10-19 16:00] VITALS: BP 146/88
[2016-10-20 00:58] VITALS: BP 180/84
[2016-10-20 07:32] VITALS: BP 149/71
[2016-10-20 09:48] LABS: HEMATOCRIT 26.8 % (38.0-50.0); MCH 29.1 PG (29.0-34.0); MCHC 33.6 G/DL (30.0-36.0); MCV 86.7 FL (86-99); MEAN PLAT.VOLUME 9.7 uM^3 (9.0-12.4); PLATELET COUNT 306 K/uL (156-360); RBC DIS.WIDTH-CV 15.7 % (11.8-14.6); RBC DIS.WIDTH-SD 49.3 % (39-53); RED BLOOD COUNT 3.09 M/uL (4.00-5.50); WHITE BLOOD COUNT 6.6 K/uL (4.1-10.2)
[2016-10-20 10:41] LABS: ANION GAP 10 MEQ/L (2-14); CHLORIDE 112 MEQ/L (99-109); GFR ESTIMATE (CALCULATED) > 59 mL/min/; GLUCOSE 129 mg/dL (70-99); POTASSIUM 3.4 MEQ/L (3.7-5.4); SAMPLE HEMOLYSIS CHECK 0; SAMPLE ICTERIC CHECK 0; SAMPLE LIPEMIA CHECK 0; SODIUM 138 MEQ/L (136-147); UREA NITROGEN (BUN) 20 mg/dL (9-23)
[2016-10-20 15:56] VITALS: BP 152/69
[2016-10-20 23:47] VITALS: BP 154/81
[2016-10-21 07:38] VITALS: BP 160/80
[2016-10-21 10:00] LABS: HEMATOCRIT 32.3 % (38.0-50.0); MCH 29.1 PG (29.0-34.0); MCHC 33.7 G/DL (30.0-36.0); MCV 86.1 FL (86-99); MEAN PLAT.VOLUME 10.1 uM^3 (9.0-12.4); PLATELET COUNT 314 K/uL (156-360); RBC DIS.WIDTH-CV 15.5 % (11.8-14.6); RBC DIS.WIDTH-SD 49.2 % (39-53); WHITE BLOOD COUNT 7.9 K/uL (4.1-10.2)
[2016-10-21 10:28] LABS: RED BLOOD COUNT 3.75 M/uL (4.00-5.50)
[2016-10-21 11:06] LABS: ANION GAP 9 MEQ/L (2-14); CHLORIDE 109 MEQ/L (99-109); GFR ESTIMATE (CALCULATED) 57 mL/min/; GLUCOSE 115 mg/dL (70-99); POTASSIUM 3.4 MEQ/L (3.7-5.4); SAMPLE HEMOLYSIS CHECK 0; SAMPLE ICTERIC CHECK 0; SAMPLE LIPEMIA CHECK 0; SODIUM 134 MEQ/L (136-147); UREA NITROGEN (BUN) 25 mg/dL (9-23)
[2016-10-21 23:45] VITALS: BP 140/68
[2016-10-22 07:23] LABS: HEMATOCRIT 25.5 % (38.0-50.0); MCH 27.7 PG (29.0-34.0); MCHC 32.9 G/DL (30.0-36.0); MCV 84.2 FL (86-99); MEAN PLAT.VOLUME 9.9 uM^3 (9.0-12.4); PLATELET COUNT 247 K/uL (156-360); RBC DIS.WIDTH-CV 15.3 % (11.8-14.6); RBC DIS.WIDTH-SD 46.9 % (39-53); RED BLOOD COUNT 3.03 M/uL (4.00-5.50)
[2016-10-22 07:31] LABS: ANION GAP 11 MEQ/L (2-14); CHLORIDE 107 MEQ/L (99-109); GFR ESTIMATE (CALCULATED) > 59 mL/min/; GLUCOSE 119 mg/dL (70-99); MAGNESIUM 1.1 mg/dl (1.3-2.7); POTASSIUM 3.2 MEQ/L (3.7-5.4); SAMPLE HEMOLYSIS CHECK 0; SAMPLE ICTERIC CHECK 0; SAMPLE LIPEMIA CHECK 0; SODIUM 131 MEQ/L (136-147); UREA NITROGEN (BUN) 25 mg/dL (9-23)
[2016-10-22 08:41] VITALS: BP 126/69
[2016-10-22] MEDS ORDERED: NABI650T PO (12:25)
[2016-10-22] MEDS ORDERED: MAGOX 400400 MG PO (12:25)
[2016-10-22 13:00] VITALS: BP 89/59
[2016-10-22 15:00] VITALS: BP 108/65
[2016-10-23 00:17] VITALS: BP 126/67
[2016-10-23 04:40] VITALS: BP 104/62
[2016-10-23 07:12] LABS: HEMATOCRIT 24.5 % (38.0-50.0); MCH 28.6 PG (29.0-34.0); MCHC 33.9 G/DL (30.0-36.0); MCV 84.5 FL (86-99); MEAN PLAT.VOLUME 9.8 uM^3 (9.0-12.4); PLATELET COUNT 227 K/uL (156-360); RBC DIS.WIDTH-CV 15.3 % (11.8-14.6); RBC DIS.WIDTH-SD 47.7 % (39-53); WHITE BLOOD COUNT 5.5 K/uL (4.1-10.2)
[2016-10-23 07:15] VITALS: BP 127/78
[2016-10-23 08:07] LABS: ANION GAP 12 MEQ/L (2-14); CHLORIDE 112 MEQ/L (99-109); GFR ESTIMATE (CALCULATED) > 59 mL/min/; GLUCOSE 98 mg/dL (70-99); POTASSIUM 3.8 MEQ/L (3.7-5.4); SAMPLE HEMOLYSIS CHECK 0; SAMPLE ICTERIC CHECK 0; SAMPLE LIPEMIA CHECK 0; SODIUM 136 MEQ/L (136-147); UREA NITROGEN (BUN) 27 mg/dL (9-23)
[2016-10-23 12:45] VITALS: BP 107/60
[2016-10-23 14:50] VITALS: BP 118/61
[2016-10-23 21:16] VITALS: BP 132/61
[2016-10-24] VITALS: BP 103/56
[2016-10-24 07:17] VITALS: BP 154/82
[2016-10-24 16:11] VITALS: BP 161/72
== END 2016-10-24 17:47 | disposition home health service (06) | DRG 682 ==
LOC: EME 11:50 → EDOF 15:23 → 5SOUTH 15:23 → EDOF 19:14 → 5SOUTH 10-10 00:24
PROVIDERS: Emergency Medicine; Hospitalist; Internal Medicine; Physician Assistant; Specialist; Student in an Organized Health Care Education/Training Program
DX: N17.8 Other acute kidney failure (principal); K63.1 Perforation of intestine (nontraumatic); G93.41 Metabolic encephalopathy; L89.159 Pressure ulcer of sacral region, unspecified stage; K55.9 Vascular disorder of intestine, unspecified; I95.9 Hypotension, unspecified; E87.2 Acidosis; E11.22 Type 2 diabetes mellitus with diabetic chronic kidney disease; F03.90 Unspecified dementia, unspecified severity, without behavioral disturbance, psychotic disturbance, mood disturbance, and anxiety; F05 Delirium due to known physiological condition; A09 Infectious gastroenteritis and colitis, unspecified; I12.9 Hypertensive chronic kidney disease with stage 1 through stage 4 chronic kidney disease, or unspecified chronic kidney disease; Z86.12 Personal history of poliomyelitis; Z87.891 Personal history of nicotine dependence; N18.2 Chronic kidney disease, stage 2 (mild); E78.5 Hyperlipidemia, unspecified; D50.9 Iron deficiency anemia, unspecified; G40.909 Epilepsy, unspecified, not intractable, without status epilepticus; Z51.5 Encounter for palliative care; Z66 Do not resuscitate; E87.1 Hypo-osmolality and hyponatremia; L22 Diaper dermatitis; E86.0 Dehydration; I80.8 Phlebitis and thrombophlebitis of other sites; Z91.19 Patient's noncompliance with other medical treatment and regimen; D63.8 Anemia in other chronic diseases classified elsewhere; Z86.73 Personal history of transient ischemic attack (TIA), and cerebral infarction without residual deficits; T82.898A Other specified complication of vascular prosthetic devices, implants and grafts, initial encounter
CPT/HCPCS: 71010; 74020; 74176; 80048; 80053; 81003; 82040; 82272; 82728; 83516 90; 83540; 83605; 83615; 83690; 83735; 84466; 84478; 84484; 85025; 85027; 87040; 87493; 93005; 99281; 99285; J0744; J1644; J1756; J1953; J2270; J3480; J7030; J7050; S0030

== ENCOUNTER 2016-10-29 07:00 | Inpatient (IN) | payer OTHER ==
[~2016-10-29] VITALS: Ht 167.6 cm; Wt 62.1 kg
[~2016-10-29 07:00] MED LIST changes: +FLAGYL500 MG PO; +MAGOX 400400 MG PO; +METOCLOPRAMIDE H5 MG PO; +NABI650T PO; +PROMETHAZINE12.5 M1 PO; +SALINE FLUSH 1010 ML IV
[2016-10-29 07:54] LABS: EOSINOPHIL (%) 0.2 % (0-5); HEMATOCRIT 28.9 % (38.0-50.0); IMMATURE GRANULOCYTE (%) 0.4 % (0.0-0.7); IMMATURE GRANULOCYTE COUNT 0.5 K/uL; MCH 27.9 PG (29.0-34.0); MCHC 31.8 G/DL (30.0-36.0); MCV 87.6 FL (86-99); MEAN PLAT.VOLUME 9.4 uM^3 (9.0-12.4); MONOCYTE (%) 5.3 % (3-12); MONOCYTE COUNT 0.6 K/uL (0-0.8); NEUTROPHIL (%) 85.5 % (45-76); NEUTROPHIL COUNT 10.1 K/uL (1.8-6.4); RBC DIS.WIDTH-CV 14.9 % (11.8-14.6); RBC DIS.WIDTH-SD 46.4 % (39-53)
[2016-10-29 08:01] LABS: PLATELET COUNT 530 K/uL (156-360); WHITE BLOOD COUNT 11.8 K/uL (4.1-10.2)
[2016-10-29 08:19] LABS: CHLORIDE 118 mEq/L (99-109); SODIUM 141 mEq/L (136-147)
[2016-10-29 08:22] LABS: GLUCOSE 138 mg/dL (70-99)
[2016-10-29 08:23] LABS: ANION GAP 11 MEQ/L (2-14)
[2016-10-29 08:24] LABS: TOTAL BILIRUBIN 0.4 mg/dL (0.0-1.0)
[2016-10-29 08:25] LABS: ALKALINE PHOSPHATASE 87 IU/L (3-129)
[2016-10-29 08:26] LABS: GFR ESTIMATE (CALCULATED) 39 mL/min/; POTASSIUM 4.6 mEq/L (3.7-5.4)
[2016-10-29 08:27] LABS: UREA NITROGEN (BUN) 62 mg/dL (9-23)
[2016-10-29] MEDS ORDERED: ZIPRASIDONE HCL20 MG PO (10:33)
[2016-10-29] MEDS ORDERED: LISINOPRIL40 MG PO (10:33)
[2016-10-29] MEDS ORDERED: PANTOPRAZOLE SO40 MG PO (10:34)
[2016-10-29] MEDS ORDERED: FENOFIBRATE145 M1 PO (10:35)
[2016-10-29] MEDS ORDERED: NABI650T PO (10:39)
[2016-10-29 11:03] LABS: ADD MIUA? YES; BILIRUBIN NEGATIVE; BLOOD SMALL; COLOR YELLOW ((YELLOW)); GLUCOSE (STRIP) NEGATIVE; KETONES 5; LEUKOCYTES NEGATIVE; NITRITE NEGATIVE; PROTEIN (STRIP) 30; SPECIFIC GRAVITY 1.015 (1.000-1.030); UROBILINOGEN 0.2 MG/DL (0.2-1.0)
[2016-10-29 11:11] LABS: BACTERIA RARE /HPF; EPITHELIAL CELLS RARE /HPF; MUCUS TRACE /LPF; RED BLOOD CELLS 0-5 /HPF (0-5); UCUL ADDED? NO; WHITE BLOOD CELLS 0-5 /HPF (0-5)
[2016-10-29 20:30] VITALS: BP 146/68
[2016-10-29 21:53] LABS: INFLUENZA A VIRAL ANTIGEN NEGATIVE; INFLUENZA B VIRAL ANTIGEN POSITIVE
[2016-10-30] VITALS (10 sets, daily range): BP systolic 110–165; BP diastolic 50–78
[2016-10-30 06:26] LABS: EOSINOPHIL (%) 0.1 % (0-5); HEMATOCRIT 22.6 % (38.0-50.0); IMMATURE GRANULOCYTE (%) 0.4 % (0.0-0.7); LYMPHOCYTE COUNT 0.9 K/uL (1.0-2.8); MCH 27.4 PG (29.0-34.0); MCHC 32.3 G/DL (30.0-36.0); MEAN PLAT.VOLUME 9.2 uM^3 (9.0-12.4); MONOCYTE (%) 5.3 % (3-12); MONOCYTE COUNT 0.5 K/uL (0-0.8); NEUTROPHIL (%) 84.5 % (45-76); NEUTROPHIL COUNT 8.1 K/uL (1.8-6.4); PLATELET COUNT 382 K/uL (156-360); RBC DIS.WIDTH-CV 14.9 % (11.8-14.6); RBC DIS.WIDTH-SD 46.4 % (39-53); RED BLOOD COUNT 2.66 M/uL (4.00-5.50); WHITE BLOOD COUNT 9.5 K/uL (4.1-10.2)
[2016-10-30 06:51] LABS: ALKALINE PHOSPHATASE 65 IU/L (3-129); ANION GAP 10 MEQ/L (2-14); CHLORIDE 113 MEQ/L (99-109); GLUCOSE 152 mg/dL (70-99); POTASSIUM 3.7 MEQ/L (3.7-5.4); SAMPLE HEMOLYSIS CHECK 0; SAMPLE ICTERIC CHECK 0; SAMPLE LIPEMIA CHECK 0; SODIUM 140 MEQ/L (136-147); TOTAL BILIRUBIN 0.4 MG/DL (0.0-1.0); UREA NITROGEN (BUN) 40 mg/dL (9-23)
[2016-10-30 06:55] LABS: GFR ESTIMATE (CALCULATED) > 59 mL/min/
[2016-10-30 07:56] LABS: INTERNAL CONTROL VALID? YES
[2016-10-30 13:47] LABS: HEMATOCRIT 21.3 % (38.0-50.0); MCV 84.9 FL (86-99)
[2016-10-30 20:56] LABS: C DIFF TOXIN NEGATIVE (NEGATIVE); PROBE CHECK PASS; SPECIMEN PROCESSING CONTROL PASS
[2016-10-31 05:20] VITALS: BP 120/64
[2016-10-31 06:03] LABS: EOSINOPHIL (%) 0.2 % (0-5); HEMATOCRIT 23.6 % (38.0-50.0); IMMATURE GRANULOCYTE COUNT 0.1 K/uL; LYMPHOCYTE COUNT 1.2 K/uL (1.0-2.8); MCHC 32.2 G/DL (30.0-36.0); MEAN PLAT.VOLUME 9.3 uM^3 (9.0-12.4); MONOCYTE (%) 5.7 % (3-12); MONOCYTE COUNT 0.6 K/uL (0-0.8); NEUTROPHIL (%) 81.6 % (45-76); NEUTROPHIL COUNT 8.5 K/uL (1.8-6.4); PLATELET COUNT 399 K/uL (156-360); RBC DIS.WIDTH-CV 15.4 % (11.8-14.6); RBC DIS.WIDTH-SD 47.5 % (39-53); RED BLOOD COUNT 2.81 M/uL (4.00-5.50); WHITE BLOOD COUNT 10.4 K/uL (4.1-10.2)
[2016-10-31 06:34] LABS: ALKALINE PHOSPHATASE 65 IU/L (3-129); ANION GAP 10 MEQ/L (2-14); CHLORIDE 114 MEQ/L (99-109); CREATINE KINASE 60 IU/L (1-294); GFR ESTIMATE (CALCULATED) > 59 mL/min/; GLUCOSE 148 mg/dL (70-99); MAGNESIUM 1.4 mg/dl (1.3-2.7); POTASSIUM 3.4 MEQ/L (3.7-5.4); SAMPLE HEMOLYSIS CHECK 0; SAMPLE ICTERIC CHECK 0; SAMPLE LIPEMIA CHECK 0; SODIUM 144 MEQ/L (136-147); UREA NITROGEN (BUN) 29 mg/dL (9-23)
[2016-10-31 06:40] LABS: TOTAL BILIRUBIN 0.5 MG/DL (0.0-1.0)
[2016-10-31 08:07] VITALS: BP 168/83
[2016-10-31 11:18] VITALS: BP 156/73
[2016-10-31 17:19] VITALS: BP 140/69
[2016-10-31 20:10] VITALS: BP 150/68
[2016-11-01] VITALS (13 sets, daily range): BP systolic 141–195; BP diastolic 68–90
[2016-11-01 06:55] LABS: EOSINOPHIL (%) 0.6 % (0-5); EOSINOPHIL COUNT 0.1 K/uL (0-0.3); HEMATOCRIT 21.2 % (38.0-50.0); IMMATURE GRANULOCYTE (%) 2.7 % (0.0-0.7); IMMATURE GRANULOCYTE COUNT 0.2 K/uL; INSTRUMENT ABS NEUTROPHIL CT 6.5 K/uL; LYMPHOCYTE COUNT 1.3 K/uL (1.0-2.8); MCH 27.3 PG (29.0-34.0); MCHC 32.1 G/DL (30.0-36.0); MCV 85.1 FL (86-99); MEAN PLAT.VOLUME 9.7 uM^3 (9.0-12.4); MONOCYTE (%) 6.4 % (3-12); MONOCYTE COUNT 0.6 K/uL (0-0.8); NEUTROPHIL (%) 75.2 % (45-76); NEUTROPHIL COUNT 6.5 K/uL (1.8-6.4); PLATELET COUNT 361 K/uL (156-360); RBC DIS.WIDTH-CV 15.4 % (11.8-14.6); RBC DIS.WIDTH-SD 46.7 % (39-53); RED BLOOD COUNT 2.49 M/uL (4.00-5.50); WHITE BLOOD COUNT 8.7 K/uL (4.1-10.2)
[2016-11-01 07:33] LABS: ALKALINE PHOSPHATASE 59 IU/L (3-129); ANION GAP 9 MEQ/L (2-14); CHLORIDE 115 MEQ/L (99-109); GFR ESTIMATE (CALCULATED) > 59 mL/min/; GLUCOSE 160 mg/dL (70-99); MAGNESIUM 1.3 mg/dl (1.3-2.7); POTASSIUM 3.3 MEQ/L (3.7-5.4); SAMPLE HEMOLYSIS CHECK 0; SAMPLE ICTERIC CHECK 0; SAMPLE LIPEMIA CHECK 0; SODIUM 146 MEQ/L (136-147); UREA NITROGEN (BUN) 16 mg/dL (9-23)
[2016-11-01 07:45] LABS: TOTAL BILIRUBIN 0.3 MG/DL (0.0-1.0)
[2016-11-01 13:27] LABS: HEMATOCRIT 24.1 % (38.0-50.0); MCV 85.5 FL (86-99)
[2016-11-01 17:03] LABS: HEMATOCRIT 29.5 % (38.0-50.0); MCH 28.6 PG (29.0-34.0); MCHC 33.6 G/DL (30.0-36.0); MCV 85.3 FL (86-99); MEAN PLAT.VOLUME 9.7 uM^3 (9.0-12.4); PLATELET COUNT 411 K/uL (156-360); RBC DIS.WIDTH-CV 14.9 % (11.8-14.6); RBC DIS.WIDTH-SD 46.1 % (39-53); WHITE BLOOD COUNT 10.7 K/uL (4.1-10.2)
[2016-11-01 17:19] LABS: RED BLOOD COUNT 3.46 M/uL (4.00-5.50)
[2016-11-02] VITALS (8 sets, daily range): BP systolic 130–184; BP diastolic 70–89
[2016-11-02 07:25] LABS: EOSINOPHIL (%) 0.6 % (0-5); EOSINOPHIL COUNT 0.1 K/uL (0-0.3); HEMATOCRIT 28.1 % (38.0-50.0); IMMATURE GRANULOCYTE COUNT 0.2 K/uL; INSTRUMENT ABS NEUTROPHIL CT 8.2 K/uL; LYMPHOCYTE COUNT 1.3 K/uL (1.0-2.8); MCV 87.3 FL (86-99); MEAN PLAT.VOLUME 9.8 uM^3 (9.0-12.4); MONOCYTE (%) 6.7 % (3-12); MONOCYTE COUNT 0.7 K/uL (0-0.8); NEUTROPHIL (%) 78.1 % (45-76); NEUTROPHIL COUNT 8.2 K/uL (1.8-6.4); PLATELET COUNT 372 K/uL (156-360); RBC DIS.WIDTH-CV 15.3 % (11.8-14.6); RBC DIS.WIDTH-SD 48.4 % (39-53); RED BLOOD COUNT 3.22 M/uL (4.00-5.50); WHITE BLOOD COUNT 10.5 K/uL (4.1-10.2)
[2016-11-02 07:52] LABS: ANION GAP 6 MEQ/L (2-14); CHLORIDE 116 MEQ/L (99-109); GFR ESTIMATE (CALCULATED) > 59 mL/min/; GLUCOSE 192 mg/dL (70-99); MAGNESIUM 1.4 mg/dl (1.3-2.7); POTASSIUM 3.5 MEQ/L (3.7-5.4); SAMPLE HEMOLYSIS CHECK 0; SAMPLE ICTERIC CHECK 0; SAMPLE LIPEMIA CHECK 0; SODIUM 145 MEQ/L (136-147); UREA NITROGEN (BUN) 11 mg/dL (9-23)
[2016-11-03 03:30] VITALS: BP 140/90
[2016-11-03 05:34] VITALS: BP 182/94
[2016-11-03 07:39] VITALS: BP 177/93
[2016-11-03 16:00] VITALS: BP 180/93
[2016-11-03 22:59] VITALS: BP 150/90
[2016-11-04 06:05] LABS: ALKALINE PHOSPHATASE 58 IU/L (3-129); ANION GAP 8 MEQ/L (2-14); CHLORIDE 110 MEQ/L (99-109); GFR ESTIMATE (CALCULATED) > 59 mL/min/; GLUCOSE 121 mg/dL (70-99); SAMPLE HEMOLYSIS CHECK 0; SAMPLE ICTERIC CHECK 0; SAMPLE LIPEMIA CHECK 0; SODIUM 141 MEQ/L (136-147); TOTAL BILIRUBIN 0.3 MG/DL (0.0-1.0); UREA NITROGEN (BUN) 11 mg/dL (9-23)
[2016-11-04] MEDS ORDERED: DAKINS SOLUTIO473 ML TP (07:49)
[2016-11-04] MEDS ORDERED: MYCOSTATIN 100,60 ML PO (07:49)
[2016-11-04] MEDS ORDERED: APRESOLINE50 MG PO (07:49)
[2016-11-04] MEDS ORDERED: DUONEB 2.5-0.5 M3 ML AEROSOL (07:49)
[2016-11-04] MEDS ORDERED: K-DUR20 MEQ PO (07:49)
[2016-11-04] MEDS ORDERED: OYSTER SHELL 51 EACH PO (07:49)
[2016-11-04] MEDS ORDERED: AMOX TR-K CLV1 EAC4 PO (07:49)
[2016-11-04] MEDS ORDERED: DOXYCYCLINE HY100 M3 PO (07:49)
[2016-11-04] MEDS ORDERED: ENDOCET 5-3251 EACH PO (07:49)
[2016-11-04 08:40] VITALS: BP 202/101
[2016-11-04 12:59] LABS: INFLUENZA A VIRAL ANTIGEN NEGATIVE; INFLUENZA B VIRAL ANTIGEN POSITIVE
[2016-11-04 15:15] VITALS: BP 165/72
[2016-11-04 22:45] VITALS: BP 130/62
[2016-11-05 07:12] VITALS: BP 142/60
== END 2016-11-05 14:44 | DRG 682 ==
LOC: EME → EDBD 07:00 → 5EAST 09:48 → EDOF 09:48 → 4SOUTH 09:48 → EDOF 10:06 → 4SOUTH 20:34 → 5EAST 11-04 18:19
PROVIDERS: Emergency Medicine; Family Medicine; Internal Medicine; Internal Medicine Gastroenterology; Nurse Practitioner Adult Health; Pediatrics
PROC: 0DJ08ZZ Inspection of Upper Intestinal Tract, Via Natural or Artificial Opening Endoscopic (ICD-10-PCS; principal; 2016-11-01)
PROC: 30233N1 Transfusion of Nonautologous Red Blood Cells into Peripheral Vein, Percutaneous Approach (ICD-10-PCS; principal; 2016-11-01)
DX: N17.9 Acute kidney failure, unspecified (principal); G93.41 Metabolic encephalopathy; J11.00 Influenza due to unidentified influenza virus with unspecified type of pneumonia; L89.153 Pressure ulcer of sacral region, stage 3; E87.2 Acidosis; B37.81 Candidal esophagitis; E11.22 Type 2 diabetes mellitus with diabetic chronic kidney disease; E88.89 Other specified metabolic disorders; N18.2 Chronic kidney disease, stage 2 (mild); E87.8 Other disorders of electrolyte and fluid balance, not elsewhere classified; D63.1 Anemia in chronic kidney disease; Y95 Nosocomial condition; I12.9 Hypertensive chronic kidney disease with stage 1 through stage 4 chronic kidney disease, or unspecified chronic kidney disease; F32.9 Major depressive disorder, single episode, unspecified; E87.6 Hypokalemia; D63.8 Anemia in other chronic diseases classified elsewhere; E83.42 Hypomagnesemia; E86.0 Dehydration; Z51.5 Encounter for palliative care; E83.39 Other disorders of phosphorus metabolism; E83.51 Hypocalcemia; F03.90 Unspecified dementia, unspecified severity, without behavioral disturbance, psychotic disturbance, mood disturbance, and anxiety; Z86.73 Personal history of transient ischemic attack (TIA), and cerebral infarction without residual deficits; Z86.12 Personal history of poliomyelitis; L30.8 Other specified dermatitis
CPT/HCPCS: 71010; 74230; 76770; 80048; 80053; 80202; 81003; 82272; 82330; 82550; 83605; 83735; 84100; 85014; 85018; 85025; 85027; 86850; 86900; 86901; 86920; 87040; 87070; 87075; 87205; 87449; 87493; 87502; 87506; 92526 GN; 92611 GN; 94667; 94668; 99202; 99281; 99285; J0360; J1644; J2250; J2543; J3370; J3475; J7030; J7040; J7050; P9016